=== PATIENT | male | born 1945 | race Caucasian/White ===

== ENCOUNTER 2017-02-14 17:22 | Emergency (ER) | payer MEDICARE, OTHER ==
[2017-02-14] MEDS ORDERED: ONDANSETRON HCL 4 MG/2 ML VIAL ONE (17:42)
[2017-02-14] MEDS ORDERED: NORMAL SALINE 1,000 ML IV ONE ×2 (17:42→17:51)
[2017-02-14 17:46] LABS: BASOPHIL# 0.2 X 10^3uL (0.0-0.1); EOSINOPHILS 0.1 % (0.0-6.0); HEMOGLOBIN 15.9 g/dL (14.0-18.0); LYMPHOCYTES 4.4 % (20.0-40.0); LYMPHOCYTES# 0.2 X 10^3uL (0.8-3.8); MEAN CORPUS. HGB CONCENTRATION 34.5 g/dL (32.0-36.0); MEAN CORPUSCULAR HEMOGLOBIN 29.6 pg (29.0-35.0); MEAN PLATELET VOLUME 8.1 fL (7.4-10.4); MONOCYTES 7.2 % (2.0-10.0); MONOCYTES# 0.4 X 10^3uL (0.2-1.0); NEUTROPHILS 84.3 % (54.0-75.0); NEUTROPHILS# 4.6 X 10^3uL (2.6-6.7); PLATELET COUNT 117 X 10^3uL (130-440); RED BLOOD COUNT 5.35 X 10^6uL (4.20-6.10); RED CELL DISTRIBUTION WIDTH 12.8 % (11.5-14.5); WHITE BLOOD COUNT 5.4 X 10^3uL (3.9-10.7)
[2017-02-14] MEDS ORDERED: KETOROLAC TROMETHAMINE 30 MG/ML VIAL ONE (17:51)
[2017-02-14 17:54] LABS: BLOOD UREA NITROGEN 13 mg/dL (9-20); CALCIUM 9.1 mg/dL (8.4-10.2); CHLORIDE 100 mmol/L (98-107); CREATININE 0.9 mg/dL (0.7-1.3); EST GLOMERULAR FILTRATION RATE > 60 mL/min; GLUCOSE 124 mg/dL (70-100); POTASSIUM 3.7 mmol/L (3.5-5.1); SODIUM 133 mmol/L (137-145)
[2017-02-14] MEDS ORDERED: OSELTAMIVIR PHOSPHATE 75 MG CAPSULE PO ONE (18:10)
--- NOTE | 2017-02-14 18:52 | ER NURSING DOCUMENTATION ---
Nurse's Notes [facility] Name:Jerrod Odonnell Age:72 yrs Sex:Male :1945 Arrival Date:02/14/2017 Time:17:22 Bed1 Private MD:Va Mercado Diagnosis:Influenza Presentation: 02/14 17:30 Acuity: DAVID 3 mk2 17:43 Presenting complaint: Patient states: I just got back from a cruise and at 0100 last mk2 night I began with a low fever, aches, headache and belly pain with nausea and vomiting. Transition of care: Home. Care prior to arrival: Medication(s) given: Tylenol. 17:43 Method Of Arrival: Wheelchair mk2 Triage Assessment: 17:48 General: Appears uncomfortable, Behavior is cooperative, pleasant. Pain: Complains of mk2 pain in umbilical area Pain currently is 3 out of 10 on a pain scale. Cardiovascular: Heart tones S1 S2. Respiratory: Breath sounds are clear bilaterally. GI: Reports vomiting, since last night. Derm: Skin is red. Musculoskeletal: Reports bodyaches. Historical: - Allergies: IODINEIODINE CONTAINING; - Home Meds: 1. aspirin 81 mg oral tab 1 tab once daily 2. Coumadin 5 mg oral tab 1 tab once daily 3. Vitamin D Oral 4. pravastatin 40 mg oral tab 1 tab once daily 5. fluticasone 50 mcg/actuation nasal spsn 1 spray once daily 6. pantoprazole 40 mg oral grps 7. nitroglycerin 0.4 mg sublingual subl for as needed. 8. Vitamin D Oral - PMHx: CAD; hyperlipidemia; ATRIAL FIB; GASTRIC REFLUX; GLAUCOMA; s/p prostate cancer; - PSHx: stent placement; Ablation; - Tetanus: < 10 years. - Ebola Screening: : Patient negative for fever greater than or equal to 101.5 degrees Fahrenheit, and additional compatible Ebola Virus Disease symptoms. Patient denies exposure to infectious person. Patient denies travel to an Ebola-affected area in the 21 days before illness onset. No symptoms or risks identified at this time. . - Immunization history: Pneumococcal vaccine is up to date, Flu Vaccine < 1 year. - Social history: Smoking status: Patient states was never smoker of tobacco. Patient uses alcohol occasionally. Patient/guardian denies using street drugs. Screenin:50 Infectious Disease Risk None. Abuse screen: Denies threats or abuse. Nutritional mk2 screening: No deficits noted. Assessment: 17:50 See Triage Assessment done by same RN. mk2 Vital Signs: 17:49 BP 130 / 68; Pulse 90; Resp 18; Temp 98.5; Pulse Ox 91% on R/A; Weight 83.91 kg; Height mk2 6 ft. (182.88 cm); Pain 3/10; 18:26 BP 131 / 58; Pulse 84; Resp 15; Pulse Ox 92% on R/A; Pain 2/10; mk2 17:49 Body Mass Index 25.09 (83.91 kg, 182.88 cm) mk2 ED Course: 17:23 Patient arrived in ED. ds 17:23 Va Mercado MD is Private Physician. ds 17:24 Yasmani Da Silva MD is Attending Physician. jm 17:29 Dina Milton, RN is Primary Nurse. mk2 17:30 Triage completed. mk2 17:50 Inserted peripheral IV: 20 gauge in left antecubital area and blood collected. mk2 17:50 Arm band placed on Bed in low position Call Light in Reach Gowned HOB Elevated Side mk2 rails up x1. 18:01 Va Mercado MD is Referral Physician. jm 18:04 No apparent distress. mk2 18:45 Valuables Remains with patient. mk2 Administered Medications: 17:51 Drug: NS 0.9% 1000 ml; Route: IV; Rate: bolus; Site: left antecubital; mk2 18:07 Follow up: IV Status: Completed infusion; IV Intake: 999ml mk2 17:51 Drug: Zofran 4 mg; Route: IVP; Infused Over: 2 mins; Site: left antecubital; mk2 17:52 Follow up: Response: Nausea is decreased mk2 17:51 Drug: Toradol 30 mg; Route: IVP; Site: left antecubital; mk2 18:07 Follow up: Response: Pain is decreased mk2 18:07 Drug: NS 0.9% 1000 ml; Route: IV; Rate: bolus; Site: left antecubital; mk2 18:40 Follow up: IV Status: Completed infusion; IV Intake: 999ml mk2 Intake: 18:07 IV: 999ml; Total: 999ml. mk2 18:40 IV: 999ml; Total: 1998ml. 2 Outcome: 18:01 Discharge ordered by . rahat 18:45 Discharged to home ambulatory. 2 18:45 Condition: improved 18:45 Discharge instructions given to patient, Instructed on discharge instructions, follow up and referral plans. medication usage. 18:45 IV D/Oliver 18:51 Patient left the ED. 2 02/15 10:36 Discharge F/U Call: Spoke with: patient. Have you filled your prescriptions? yes. lp Overall Care on a scale of 1-10 with 10 being the best care, you rate our care as: the rating of 10. Signatures: Dina Hahn, RN RN lp Srot, Karey, Reg Reg Yasmani Moses MD MD jm Kruger, Meg, RN RN [facility]
--- NOTE | 2017-02-14 18:52 | ER PHYSICIAN DOCUMENTATION ---
Physician Documentation [facility] Name:Jerrod Odonnell Age:72 yrs Sex:Male :1945 Arrival Date:02/14/2017 Time:17:22 Bed1 Private MD:Va Mercado EDpeggyYasmani Disposition: 02/14/17 18:01 Discharged to Home/Self Care. Impression: Influenza. - Condition is Good. - Discharge Instructions: INFLUENZA (Adult). - Prescriptions for Tamiflu 75 mg Oral Capsule - take 1 capsule by ORAL route every 12 hours for 5 days; 10 capsule. Zofran 4 mg Oral - take 1-2 tablet by ORAL route every 4-6 hours As needed; 15 tablet. - Medical Reconciliation form form. - Follow up: Va Mercado MD; When: As needed; Reason: Continuance of care. - Problem is new. - Symptoms have improved. HPI: 02/14 17:42 This 72 yrs old Male presents to ER via Wheelchair with complaints of jm Nausea/Vomiting. 17:42 The patient presents to the emergency department with nausea, with vomiting, without jm any complaints of abdominal pain. Onset: The symptom(s)/episode began/occurred today. Possible causes: sick contacts, airport. Associated signs and symptoms: Pertinent positives: fever, mild SOSA and body aches. . Severity of symptoms: in the emergency department the symptoms have improved mildly. The patient has not experienced similar symptoms in the past. The patient has not recently seen a physician. 72 yo M w hx of CAD here for n/v and flu like sx.. Historical: - Allergies: IODINEIODINE CONTAINING; - Home Meds: 1. aspirin 81 mg oral tab 1 tab once daily 2. Coumadin 5 mg oral tab 1 tab once daily 3. Vitamin D Oral 4. pravastatin 40 mg oral tab 1 tab once daily 5. fluticasone 50 mcg/actuation nasal spsn 1 spray once daily 6. pantoprazole 40 mg oral grps 7. nitroglycerin 0.4 mg sublingual subl for as needed. 8. Vitamin D Oral - PMHx: CAD; hyperlipidemia; ATRIAL FIB; GASTRIC REFLUX; GLAUCOMA; s/p prostate cancer; - PSHx: stent placement; Ablation; - Tetanus: < 10 years. - Ebola Screening: : Patient negative for fever greater than or equal to 101.5 degrees Fahrenheit, and additional compatible Ebola Virus Disease symptoms. Patient denies exposure to infectious person. Patient denies travel to an Ebola-affected area in the 21 days before illness onset. No symptoms or risks identified at this time. . - Immunization history: Pneumococcal vaccine is up to date, Flu Vaccine < 1 year. - Social history: Smoking status: Patient states was never smoker of tobacco. Patient uses alcohol occasionally. Patient/guardian denies using street drugs. ROS: 17:53 Constitutional: Positive for body aches, chills, fatigue, fever, malaise, poor PO jm intake. 17:53 ENT: Negative for rhinorrhea, sinus congestion, sinus pain, sore throat. 17:53 Respiratory: Positive for cough. 17:53 Abdomen/GI: Positive for nausea, vomiting, Negative for abdominal pain, diarrhea. 17:53 Neuro: Positive for headache, mild. Exam: 17:54 Constitutional: The patient appears alert, awake, comfortable. 17:54 ENT: Posterior pharynx: erythema, that is mild, exudate, is not appreciated, Voice: is normal. 18:08 Neck: ROM/movement: is normal, Lymph nodes: no appreciated lymphadenopathy. 18:08 Cardiovascular: Rate: normal, Rhythm: regular. 18:08 Respiratory: Respirations: normal, Breath sounds: are normal. 18:08 Abdomen/GI: Exam negative for Bowel sounds: normal, Palpation: abdomen is soft and non-tender. 18:08 Skin: Appearance: Color: pink, no rash present. Vital Signs: 17:49 BP 130 / 68; Pulse 90; Resp 18; Temp 98.5; Pulse Ox 91% on R/A; Weight 83.91 kg; Height mk2 6 ft. (182.88 cm); Pain 3/10; 18:26 BP 131 / 58; Pulse 84; Resp 15; Pulse Ox 92% on R/A; Pain 2/10; mk2 17:49 Body Mass Index 25.09 (83.91 kg, 182.88 cm) mk2 MDM: 17:24 Patient medically screened. 18:08 Differential diagnosis: viral gastroenteritis, influenza. Data reviewed: vital signs, nurses notes, old medical records, lab test result(s), and as a result, I will discharge patient. Counseling: I had a detailed discussion with the patient and/or guardian regarding: the historical points, exam findings, and any diagnostic results supporting the discharge/admit diagnosis, lab results, the need for outpatient follow up, with the patient's primary care provider. Medication response: The patient's symptoms have improved. ED course: Pt w influenza A, but vomiting, so IV was started w zofran and toradol. Pt felt better after meds, Sent home w zofran and tamiflu. . 02/14 17:47 Order name: CBC AUTO DIF, MDIF/RMOR IF IND; Complete Time: 18:01 EDMS 02/14 17:57 Order name: BASIC METABOLIC PANEL; Complete Time: 18:01 EDMS 02/14 17:59 Order name: INFLUENZA A/B; Complete Time: 18:01 EDMS 02/14 17:39 Order name: Iv Saline Lock; Complete Time: 17:51 Dispensed Medications: 17:51 Drug: NS 0.9% 1000 ml; Route: IV; Rate: bolus; Site: left antecubital; mk2 18:07 Follow up: IV Status: Completed infusion; IV Intake: 999ml mk2 17:51 Drug: Zofran 4 mg; Route: IVP; Infused Over: 2 mins; Site: left antecubital; mk2 17:52 Follow up: Response: Nausea is decreased mk2 17:51 Drug: Toradol 30 mg; Route: IVP; Site: left antecubital; mk2 18:07 Follow up: Response: Pain is decreased mk2 18:07 Drug: NS 0.9% 1000 ml; Route: IV; Rate: bolus; Site: left antecubital; mk2 18:40 Follow up: IV Status: Completed infusion; IV Intake: 999ml mk2 Signatures: Yasmani Da Silva MD MD jm Kruger, Meg, RN RN mk2
== END 2017-02-14 18:51 | disposition home or self-care (01) ==
LOC: ER 17:22
DX: J11.1 Influenza due to unidentified influenza virus with other respiratory manifestations (principal); R11.2 Nausea with vomiting, unspecified; I25.10 Atherosclerotic heart disease of native coronary artery without angina pectoris; Z95.5 Presence of coronary angioplasty implant and graft; I48.91 Unspecified atrial fibrillation; Z79.01 Long term (current) use of anticoagulants; Z79.899 Other long term (current) drug therapy
CPT/HCPCS: 80048; 85025; 87449; 96361; 96374; 96375; 99283; J1885; J2405; J7030